=== PATIENT | female | born 1955 | race Caucasian/White ===

== ENCOUNTER 2019-03-05 10:25 | Inpatient (IN) | payer BC, OTHER ==
[~2019-03-05] VITALS: Ht 172.7 cm; Wt 143.3 kg
--- NOTE | ~2019-03-05 | D ---
[facility] [place] [address] DISCHARGE SUMMARY Name: SARAH DE LA ROSA Room #: 213-P [facility] IN ..#: [id number] Admission: 03/05/19 ������������������ Attend Phys: Chris Sotelo MD Discharge: 03/06/19 ������������������ Date of : 53 Report #: [id number] THIS REPORT FOR: //name// CC: Wilfredo Sotelo DATE OF SERVICE: 03/06/2019 FINAL DIAGNOSES: 1. New onset atrial fibrillation. 2. Hypertension. 3. Urinary tract infection. 4. Hypokalemia. HOSPITAL COURSE: The patient was admitted from home with general weakness. She is noted to have low blood pressure and some mild hypokalemia. This may be a result of her lisinopril, hydrochlorothiazide, that medicine was discontinued. She was also diagnosed with new onset atrial fibrillation, rates were generally around 100-120. Dr. Kramer saw her in consultation and switch her to metoprolol 50 mg and Xarelto 20 mg. She had no other interval complication. She continued oral Macrodantin that have been started as an outpatient for urinary symptoms. Cultures are still pending. PHYSICAL EXAMINATION: GENERAL: On the day of discharge, she was awake and alert, no new issues, stable vital signs including temperature 37.6, pulse 89, respirations 18, blood pressure 108/58 and O2 sat 96% on room air. LUNGS: Clear. HEART: Irregular. ABDOMEN: Obese, soft, normoactive bowel sounds. EXTREMITIES: No edema. DISPOSITION: She is discharged to home with regular diet. ACTIVITY: As tolerated. Follow up with Dr. Vázquez in a week, Dr. Kramer will arrange for a two-week outpatient tie carrier and then follow up with him in a month. DISCHARGE MEDICATIONS: Will be Xarelto 20 mg, metoprolol 50 mg, Ativan, duloxetine, Ambien, aspirin, Protonix, Macrobid, glucosamine, calcium, [facility] [address] [place] [address] DISCHARGE SUMMARY Name: SARAH DE LA ROSA Room #: 213-[facility].#: [id number] Admission: 03/05/19 ������������������ Attend Phys: Chris Sotelo MD Discharge: 03/06/19 ������������������ Date of : 53 Report #: [id number] multivitamin, tramadol and triamcinolone nasal spray. She is to discontinue the lisinopril and fish oil. ��������������������������������������������� ���������������������������������������� By: ��������������������������������������������� 1043 1831 Chris Sotelo MD /nt
[2019-03-05 10:28] VITALS: BP 154/67
[2019-03-05 11:06] LABS: HEMATOCRIT 41.5 % (37.0-47.0); HEMOGLOBIN 13.9 gm/dL (12.0-15.0); MCH 30.2 pg (26.0-34.0); MCHC 33.6 g/dL (28.0-37.0); PLATELET COUNT 190 thou/uL (150-400); RBC 4.62 mil/uL (4.20-5.00); RDW 16.4 % (10.5-14.5); WBC 6.3 thou/uL (4.0-11.0)
[2019-03-05 11:08] LABS: URINE BILIRUBIN NEGATIVE (Negative); URINE BLOOD 3+ (Negative); URINE CLARITY CLEAR; URINE COLOR YELLOW; URINE GLUCOSE-RANDOM* NEGATIVE (Negative); URINE KETONES NEGATIVE (Negative); URINE NITRITE-REFLEX NEGATIVE (Negative); URINE PROTEIN (DIPSTICK) 1+ (Negative); URINE SPECIFIC GRAVITY <= 1.005 (1.005-1.035)
[2019-03-05 11:09] LABS: CALCIUM 9.2 mg/dL (8.5-10.1); CREATININE 0.9 mg/dL (0.6-1.0); POTASSIUM 3.3 mmol/L (3.5-5.1)
[2019-03-05 11:10] LABS: URINE LEUKOCYTES-REFLEX 2+ (Negative)
[2019-03-05 11:15] LABS: ALBUMIN 3.3 g/dL (3.4-5.0); TOTAL BILIRUBIN 1.1 mg/dL (<0.1-1.0); TOTAL PROTEIN 7.5 g/dL (6.4-8.2)
[2019-03-05 11:19] LABS: BACTERIA-REFLEX 1-9 Few /HPF (None Seen); CASTS None Seen /LPF (None Seen); CRYSTALS None Seen /LPF (None Seen); SQUAMOUS None Seen /LPF (0-3); URINE RBC 3-10 Few /HPF (0-2); URINE WBC-REFLEX 0-5 Rare /HPF (0-5)
[2019-03-05 11:34] LABS: ABSOLUTE NEUTROPHILS 4.4 thou/uL (1.4-8.2); PLATELET ESTIMATE NORMAL
[2019-03-05] MEDS ORDERED: LISINOPRIL-HCT1 EACH PO (12:24)
[2019-03-05] MEDS ORDERED: ATIVAN0.5 MG PO (12:24)
[2019-03-05] MEDS ORDERED: ZOLPIDEM TARTRA10 MG PO (12:24)
[2019-03-05] MEDS ORDERED: ASPIR 8181 MG PO (12:24)
[2019-03-05] MEDS ORDERED: CYMBALTA30 MG PO (12:24)
[2019-03-05] MEDS ORDERED: PROTONIX40 M1 PO (12:25)
[2019-03-05] MEDS ORDERED: PREDNISONE 20 M20 MG PO (12:34)
[2019-03-05] MEDS ORDERED: AZITHROMYCIN 2250 MG PO (12:34)
[2019-03-05 13:29] VITALS: BP 103/53
[2019-03-05] MEDS ORDERED: CYMBALTA60 MG PO (13:47)
[2019-03-05] MEDS ORDERED: FISH OIL 1,001000 M2 PO (13:50)
[2019-03-05] MEDS ORDERED: MACROBID 100 M100 M2 PO (13:50)
[2019-03-05] MEDS ORDERED: OSTEO BI-FLEX1 EAC2 PO (13:51)
[2019-03-05] MEDS ORDERED: UNICOMPLEX M TA1 TA1 PO (13:52)
[2019-03-05] MEDS ORDERED: TRAMADOL 50 MG50 MG PO (13:52)
[2019-03-05] MEDS ORDERED: CALCIUM 500 +1 EAC5 PO (13:52)
[2019-03-05] MEDS ORDERED: NASAL ALLERGY16.9 ML NASAL (13:55)
[2019-03-05 14:17] VITALS: BP 88/70
[2019-03-05 16:23] VITALS: BP 110/56
--- NOTE | 2019-03-05 17:08 | 2DMMODE ---
Formerly [facility] [place] [address] 2 D/M-MODE ECHOCARDIOGRAM Name: SARAH DE LA ROSA Room #: 213-P ADM IN .R.#: [id number] ������������� Admission: 03/05/19 ������������� Attend Phys: Ashley Moise Discharge: ��� ������������� ��� Date of : 53 Date of Service: 03/05/19 1708 �� Report #: [id number] �������� ��������������������������������������������[id number] THIS REPORT FOR: //name// APPROVED REPORT Study performed: 03/05/2019 14:43:17 EXAM: Comprehensive 2D, Doppler, and color-flow Echocardiogram Patient Location: Bedside Room #: 213 Status: routine BSA: 2.45 HR: 95 bpm BP: 88/70 mmHg Rhythm: Atrial Fibrillation Other Information Study Quality: Adequate Indications Atrial Fibrillation Hypertension/HDD 2D Dimensions RVDd: 31.10 mm IVSd: 11.57 (7-11mm) LVOT Diam: 22.77 (18-24mm) LVDd: 44.04 mm PWd: 12.66 (7-11mm) Ascending Ao: 29.90 (22-36mm) LVDs: 31.48 (25-40mm) Aortic Root: 29.05 mm IVC: 17.00 mm Volumes Left Atrial Volume (Systole) Single Plane 4CH: 38.76 mL Single Plane 2CH: 64.52 mL LA ESV Index: 24.00 mL/m2 Aortic Valve AoV Peak Wilfrido.: 1.54 m/s AO Peak Gr.: 9.47 mmHg LVOT Max P.28 mmHg LVOT Max V: 1.15 m/s SALUD Vmax: 3.04 cm2 Pulmonary Valve PV Peak Wilfrido.: 0.99 m/s PV Peak Gr.: 3.89 mmHg Formerly [facility] [address] [place] [address] 2 D/M-MODE ECHOCARDIOGRAM Name: SARAH DE LA ROSA Room #: 213-P [facility] IN [facility]#: [id number] ������������� Admission: 03/05/19 ������������� Attend Phys: Ashley Moise Discharge: ��� ������������� ��� Date of : 53 Date of Service: 03/05/19 1708 �� Report #: [id number] �������� ��������������������������������������������[id number] Tricuspid Valve TR Peak Wilfrido.: 2.45 m/s TR Peak Gr.: 24.01 mmHg PA Pressure: 29.00 mmHg Left Ventricle The left ventricle is normal size. There is normal LV segmental wall motion. Mild concentric left ventricular hypertrophy. The left ventricular systolic function is normal. The left ventricular ejection fraction is within the normal range. LVEF is 60-65%. This study is not technically sufficient to allow evaluation of the LV diastolic function due to atrial fibrillation. Right Ventricle The right ventricle is normal size. The right ventricular systolic function is normal. Atria The left atrium size is normal. The right atrium size is normal. Aortic Valve The aortic valve is normal in structure. No aortic regurgitation is present. There is no aortic valvular stenosis. Mitral Valve The mitral valve is normal in structure. There is no mitral valve regurgitation noted. No evidence of mitral valve stenosis. Tricuspid Valve The tricuspid valve is normal in structure. There is trace tricuspid regurgitation. Estimated PAP 29 mmHg. There is no pulmonary hypertension. Pulmonic Valve The pulmonary valve is normal in structure. There is no pulmonic valvular regurgitation. Great Vessels The aortic root is normal in size. IVC is normal in size and collapses >50% with inspiration. Pericardium There is no pericardial effusion. <Conclusion> Formerly [facility] [address] [place] [address] 2 D/M-MODE ECHOCARDIOGRAM Name: SARAH DE LA ROSA Room #: 213-P ADM IN M.R.#: [id number] ������������� Admission: 03/05/19 ������������� Attend Phys: Ashley Moise Discharge: ��� ������������� ��� Date of : 53 Date of Service: 03/05/191707 �� Report #: [id number] �������� ��������������������������������������������[id number] The left ventricle is normal size. LVEF is 60-65%. The aortic valve is normal in structure. The mitral valve is normal in structure. The tricuspid valve is normal in structure. There is trace tricuspid regurgitation. Estimated PAP 29 mmHg. There is no pulmonary hypertension. The pulmonary valve is normal in structure. There is no pericardial effusion. ��������������������������������������������� <ELECTRONICALLY SIGNED> ���������������������������������������� By: Jeffery Tabor MD ��������������������������������������������� 03/05/191707 07 07 Jeffery Tabor MD /INF
--- NOTE | 2019-03-05 17:32 | NUR ---
ASSUMED CARE OF PT AT APPROX 1400. PT WAS A&OX4, UP AD CATHI. PT INITIALLY HAD HEART RATE OF 120'S WHICH DECREASED TO 90-110s. BLOOD PRESSURE WAS LOW AND PT WAS GIVEN FLUIDS. PT WAS AFIB ON TELEMETRY. DR. CISNEROS ROUNDED AND PUT IN ORDERS. PT DENIES WEAKNESS, DIZZYNESS, PAIN/COMPLAINT. WILL CONT WITH POC.
[2019-03-05 19:50] VITALS: BP 126/68
[2019-03-06 04:19] VITALS: BP 131/75
[2019-03-06 04:21] LABS: CREATININE 0.8 mg/dL (0.6-1.0); POTASSIUM 3.7 mmol/L (3.5-5.1)
--- NOTE | 2019-03-06 07:28 | NUR ---
ASSUME CARE 1900. PT/VITALS STABLE. DENIES PAIN. UP AD CATHI. ASSESSMETN CHARTED. PROGRESSING WELL WITH POC. AFIB ON MONITOR WITH HR CONTROLLED WHEN PT IS AT REST. WITH EXERTION HR GOES UP TO THE 130s AND 140s. PLAN IS POSSIBLE DISCHARGE WITHIN 1-2 DAYS. WILL CONTINUE TO MONITOR AND FOLLOW WITH POC
[2019-03-06 07:46] VITALS: BP 108/58
--- NOTE | 2019-03-06 08:55 | EKG ---
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 : 1955 Requested By: Maki Self Order Number: [id number] MD: Kalpesh Kramer Measurements Intervals Meally Rate: 100 P: OR: QRS: -7 QRSD: 94 T: 38 QT: 344 QTc: 444 Interpretive Statements Atrial fibrillation No previous ECG available for comparison Electronically Signed On 03-06-2019 8:55:16 CDT by Kalpesh Kramer [email or web address] ��������������������������������������������� <ELECTRONICALLY SIGNED> ���������������������������������������� By: Kalpesh Kramer MD, [facility] ��������������������������������������������� 03/06/19 0855 1203 1203 Kalpesh Kramer MD, FACC /EPI
--- NOTE | 2019-03-06 10:17 | H ---
[facility] [place] [address] HISTORY AND PHYSICAL Name: SARAH DE LA ROSA Room #: 213-P [facility] IN ..#: [id number] Admission: 03/05/19 ������������������ Attend Phys: Chris Sotelo MD Discharge: ������������������ Date of : 53 Report #: [id number] THIS REPORT FOR: //name// CC: Wilfredo Sotelo DATE OF SERVICE: 03/05/2019 CHIEF COMPLAINT: Low blood pressure. HISTORY OF PRESENT ILLNESS: The patient is a 64-year-old female who came to the Emergency Room with reports of low blood pressure. Several days ago, she was seen in urgent care center for dysuria and was diagnosed with a urinary tract infection and placed on Macrobid. She called this morning reporting intermittent fevers over the last few days, but also a low blood pressure reading this morning where she was feeling weak and dizzy. She was directed to the Emergency Room where evaluation by EKG has shown atrial fibrillation, which is a new diagnosis for her. PAST MEDICAL HISTORY: Hypertension, recurrent UTI, GERD. PAST SURGICAL HISTORY: Noncontributory. FAMILY HISTORY: Unknown. SOCIAL HISTORY: She is and lives with her . No chronic alcohol or tobacco use. ALLERGIES: None. MEDICATIONS: Ativan 0.5 mg daily, Cymbalta 90 mg daily, Lisinopril/hydrochlorothiazide 10/12.5 mg daily, Ambien 10 mg at bedtime, Protonix 40 mg, aspirin 81 mg. REVIEW OF SYSTEMS: Denies headache, chest pain, shortness of breath, abdominal pain, nausea, vomiting, diarrhea, constipation, dysuria, syncope. OBJECTIVE: VITAL SIGNS: Temperature 36.8, pulse 110, respirations 20, blood pressure 154/67, O2 sat 98% on room air. GENERAL: She is awake and alert, in no distress. HEAD AND NECK: Unremarkable. LUNGS: Clear. HEART: Irregular. ABDOMEN: Obese, soft, normoactive bowel sounds. EXTREMITIES: Trace edema. [facility] [address] [place] [address] HISTORY AND PHYSICAL Name: SARAH DE LA ROSA Room #: [address] [place] [address] [place] [facility].#: [id number] Admission: 03/05/19 ������������������ Attend Phys: Chris Sotelo MD Discharge: ������������������ Date of : 53 Report #: [id number] NEUROLOGIC: Motor strength 5/5. Cranial nerves intact. Alert and oriented. LABORATORY DATA: Potassium was 3.3. White count was normal. Urinalysis had 2+ leukocytes, rare wbc's, few bacteria is noted. EKG showed atrial fibrillation, heart rate 100. ASSESSMENT: 1. New onset atrial fibrillation. 2. Cystitis. 3. Hypertension. 4. Hypokalemia due to medication effect. PLAN: I will hold her antihypertensives for now, and she is admitted to CCU. I will ask the cardiology team to see her. Troponin, TSH, echocardiogram and potassium replacement all have been ordered, and I will continue empiric Macrobid pending any further cultures. ��������������������������������������������� <ELECTRONICALLY SIGNED> ���������������������������������������� By: Chris Sotelo MD ��������������������������������������������� 03/06/19 1017 1318 1410 Chris Sotelo MD /nt
[2019-03-06] MEDS ORDERED: XARELTO20 MG PO (10:39)
[2019-03-06] MEDS ORDERED: METOPROLOL SUCC50 MG PO (10:40)
[2019-03-06 11:26] VITALS: BP 108/58
--- NOTE | 2019-03-06 12:40 | NUR ---
ASSESSMENT CHARTED - MEDS PER JAN - NO CO'S OF PAIN OR NAUSEA. UP AD CATHI IN ROOM. PT HOME THIS AFTETRNOON - INSTRUCTION RE HOME MEDS/ CARE AND FOLLOW UP GIVEN TO PATIENT - STATED UNDERSTANDING OF INSTRUCTION GIVEN. MONITOR AND IV REMOVED PRIOR TO D/C. LAB CALL WITH RESULT OF GRAM +VE COCCI BLOOD CULTURE - CALL TO DR NEVAREZ. PT LEFT UNIT VAI WHEEL CHAIR HOME VIA PVT VEHICLE ACCOMAPNIED BY TOYIN. NO CO'S AT TIME OF D/C.
--- NOTE | 2019-03-10 08:53 | HC ---
[facility] [place] [address] CONSULTATION Name: SARAH DE LA ROSA Room #: 213-P [facility] IN ..#: [id number] Admission: 03/05/19 ������������������ Attend Phys: Chris Sotelo MD Discharge: 03/06/19 ������������������ Date of : 53 Report #: [id number] THIS REPORT FOR: //name// CC: Wilfredo Sotelo REASON FOR CONSULTATION: Atrial fibrillation. HISTORY OF PRESENT ILLNESS: The patient is a 64-year-old woman with a history of hypertension who presents following a recent history of high fevers with chills and a diagnosis of urinary tract infection. She typically takes lisinopril HCT which she has taken throughout this recent febrile illness. Today, she got up and felt lightheaded. Her blood pressure at home was low at 82/62. She presented to the Emergency Department where she was found to be in atrial fibrillation with a reasonably well controlled ventricular response at 94 beats per minute. She has rare palpitations, although nothing sustained. She denies chest pain, pressure or ischemic type symptoms. No heart failure symptoms including orthopnea, paroxysmal nocturnal dyspnea or lower extremity edema. ALLERGIES: No known drug allergies. MEDICATIONS: Include aspirin 81 mg daily, Cymbalta 90 mg daily, lisinopril HCT 10/12.5 one daily, lorazepam, Protonix, tramadol, zolpidem 10 mg at night. PAST MEDICAL HISTORY: Medical records have been reviewed and include a history of hypertension, recurrent UTIs, reflux disease. 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 Nonsmoker, nondrinker. . FAMILY HISTORY: Unremarkable for premature coronary disease. REVIEW OF SYSTEMS: All systems negative except as that noted above. PHYSICAL EXAMINATION: GENERAL: Reveals a pleasant woman in no distress. VITAL SIGNS: Blood pressure is 110/56, heart rate is 70 and irregular, respirations unlabored at 18. She is afebrile. HEENT: There are neither xanthelasma, subcutaneous xanthomata, oral mucosal or digital cyanosis or kyphoscoliosis present. CHEST: Clear to auscultation and percussion. CARDIAC: An irregularly irregular rhythm with normal S1, S2. ABDOMEN: Soft and nontender. EXTREMITIES: Without cyanosis, clubbing or edema. Radial pulses are 2+. NEUROLOGIC: She is alert with a nonfocal exam. [facility] [address] [place] [address] CONSULTATION Name: SARAH DE LA ROSA Room #: [address] [place] [address] [place] ..#: [id number] Admission: 03/05/19 ������������������ Attend Phys: Chris Sotelo MD Discharge: 03/06/19 ������������������ Date of : 53 Report #: [id number] LABORATORY DATA: EKG: Atrial fibrillation with a moderate ventricular response, otherwise normal tracing. Sodium 132, potassium 3.3, creatinine 0.9. Troponin 0. White count 6.3, hemoglobin 13, hematocrit 41, platelet count 190. Normal thyroid function studies. IMPRESSION: 1. Atrial fibrillation of unknown chronicity. 2. Recent urinary tract infection, possible early urosepsis. 3. History of hypertension. 4. Mild hypotension, probably related to volume depletion, plus medications/diuretics. Atrial fibrillation may be playing a role here. RECOMMENDATIONS: 1. IV fluids. 2. Echocardiogram with Doppler. 3. Long-term anticoagulant therapy in light of a CHADS-VASc score of 2. 4. Consider cardioversion after 3-4 weeks of anticoagulant therapy and resolution of infectious disease issues. I have discussed these issues with the patient in detail. Thank you for asking me to participate in her care. ��������������������������������������������� <ELECTRONICALLY SIGNED> ���������������������������������������� By: Kalpesh Kramer MD, FACC ��������������������������������������������� 03/10/19 0853 1653 1217 Kalpesh Kramer MD, FACC /nt
== END 2019-03-06 12:35 | disposition home or self-care (01) | DRG 310 ==
LOC: ER 10:25 → EROBS 13:03 → 2N 14:01 → ENTRNSPT 03-06 12:06 → 2N 03-06 12:35
PROVIDERS: Internal Medicine; Physician Assistant; ADMIT Internal Medicine Geriatric Medicine
DX: I48.91 Unspecified atrial fibrillation (principal); I10 Essential (primary) hypertension; K21.9 Gastro-esophageal reflux disease without esophagitis; I95.9 Hypotension, unspecified; E87.6 Hypokalemia; N30.90 Cystitis, unspecified without hematuria; T46.5X5A Adverse effect of other antihypertensive drugs, initial encounter; Y92.89 Other specified places as the place of occurrence of the external cause; Z79.82 Long term (current) use of aspirin; Z79.899 Other long term (current) drug therapy
CPT/HCPCS: 10081; 10194